=== PATIENT | female | born 1980 | race Caucasian/White ===

== ENCOUNTER 2019-05-11 11:29 | Inpatient (IN) ==
--- NOTE | 2019-04-23 15:12 | PAT Medication Instructions ---
Medication Instructions Date of Service April 23, 2019 Home Medications Juice Plus 1 cap PO DAILY 04/23/19 [History Confirmed 04/23/19] acidophilus-pectin, citrus [Acidophilus Probiotic] 1 cap PO DAILY 04/23/19 [History Confirmed 04/23/19] cholecalciferol (vitamin D3) [Vitamin D3] 2,000 unit PO DAILY 04/23/19 [History Confirmed 04/23/19] norethindrone (contraceptive) 0.35 mg PO DAILY 04/23/19 [History Confirmed 04/23/19] ASK your surgeon for instructions norethindrone (contraceptive) 0.35 mg PO DAILY 04/23/19 [History Confirmed 04/23/19] STOP taking 2 weeks before surgery (or as soon as possible if surgery is within 2 weeks) Juice Plus 1 cap PO DAILY 04/23/19 [History Confirmed 04/23/19] DO NOT take the morning of surgery acidophilus-pectin, citrus [Acidophilus Probiotic] 1 cap PO DAILY 04/23/19 [History Confirmed 04/23/19] cholecalciferol (vitamin D3) [Vitamin D3] 2,000 unit PO DAILY 04/23/19 [History Confirmed 04/23/19] Other Notes If you have any questions please call us at [phone] or [phone] or [phone] or [phone]
--- NOTE | 2019-04-24 15:33 | Anesthesiology Consultation ---
Date of Service April 24, 2019 Assessment & Plan (1) Encounter for pre-operative examination: - Check test AM DOS Chart Review Chart Review: Acceptable Risk for Surgery and Patient seen in Pre Admission Te sting Teaching & Discussion Pre-Anesthesia Teaching/Discussion Notes: Instructed NPO after midnight before surgery,except medications with 15 cc of water. Medication instructions provided according to the PAT guidelines. History Surgery Operation Date: 05/11/19 11:30 Proposed Procedures p Myomectomy - Jac Smith MD Height/Weight Height: 5 ft 9 in Weight: 85.6 kg Allergies Allergy/AdvReac Type Severity Reaction Status Date / Time No Known Drug Allergies Allergy Verified 04/23/19 09:14 lactase [From Dairy Aid] AdvReac Intermediate diarrhea, Verified 04/23/19 09:14 severe abdominal pain and fatigue Medications Home Medications Medication Instructions Recorded Confirmed Last Taken Juice Plus 1 cap PO DAILY 04/23/19 04/23/19 Unknown acidophilus-pectin, citrus 1 cap PO DAILY 04/23/19 04/23/19 Unknown [Acidophilus Probiotic] cholecalciferol (vitamin D3) 2,000 unit PO DAILY 04/23/19 04/23/19 Unknown [Vitamin D3] norethindrone (contraceptive) 0.35 mg PO DAILY 04/23/19 04/23/19 Unknown Past Medical History Medical History Fibroids Exercise / Class Metabolic Activity II 4-5 Yardwork/Stairs/Walk up hill Past Family History Family History Other No family history of adverse response to anesthesia Past Surgical History Surgical History History of dilatation and curettage D&C, hysteroscopy, polypectomy: 11/08/11: [place] [facility] [place] Past Anesthesia History No Hx of Anesthesia Complications and No Family Hx of Anesthesia Complications History of PONV No Hx of PONV and Hx of Motion Sickness (occasional) Social History Smoking Status: Never smoker Do You Dip or Chew Tobacco: No Hx Alcohol Use: Yes Alcohol type: wine alcohol intake frequency: holidays/special occasions only Hx Substance Use: No substance use type: does not use Review of Systems Patient denies chest pain, shortness of breath, dyspnea on exertion, reflux, cough, wheezing, palpitations. Physical Exam Vital Signs VITALS BP 105/68 P 54 TEMP 98.3 SP02 97%RA RESP 16 PHYSICAL Full neck and c-spine range of motion. Full TMJ range of motion. TMD 3.5 finger breaths Mallampati Score 1 Dentition: intact Lungs: clear throughout to auscultation Cardiac: regular rate and rhythm, no murmurs noted Spine: normal Extremities: no edema Testing Laboratory Results 04/24/19 15:44 04/24/19 15:44 PT 10.3 Seconds (9.0-12.0) 04/24/19 15:44 INR 1.0 (0.9-1.1) 04/24/19 15:44 APTT 27.9 Seconds (21.0-31.0) 04/24/19 15:44 Blood Type O Positive 04/24/19 15:44 Antibody Screen NEGATIVE 04/24/19 15:44
[2019-04-24 15:57] LABS: Basophils # (auto) 0.02 K/uL (0-0.2); Basophils % (auto) 0.5 %; Eosinophils # (auto) 0.06 K/uL (0-0.5); Eosinophils % (auto) 1.4 %; Hematocrit (blood only) 38.5 % (37-47); Hemoglobin 13.2 g/dL (12.0-16.0); Immature Granulocytes # (auto) 0.01 K/uL (0.00-0.02); Immature Granulocytes % (auto) 0.2 %; Lymphocytes # (auto) 1.72 K/uL (1.2-3.4); Lymphocytes % (auto) 40.1 %; Mean Corpuscular Hgb Conc 34.3 g/dL (32-36); Mean Corpuscular Volume 93.2 fL (80-100); Mean Platelet Volume 10.1 fL (7.4-10.4); Monocytes % (auto) 11.7 %; Neutrophils # (auto) 1.98 K/uL (1.4-6.5); Neutrophils % (auto) 46.1 %; Platelet Count 238 K/uL (130-400); RDW Coefficient of Variation 13.1 % (11.5-14.5); RDW Standard Deviation 44.3 fL (36.4-46.3); Red Blood Count 4.13 M/uL (4.2-5.4); White Blood Count 4.29 K/uL (4.8-10.8)
--- NOTE | 2019-04-24 16:11 | History and Physical Report ---
DATE OF ADMISSION: 05/11/2018 REASON FOR VISIT: Symptomatic uterine fibroids, episodes of heavy bleeding, desire to maintain fertility. HISTORY OF PRESENT ILLNESS: The patient is a 39-year-old [place]ip. General health is good. She has been on norethindrone 5 mg a day for about a year to stop heavy prolonged vaginal bleeding. She was diagnosed in October of 2017 with multiple uterine fibroids and consistent heavy bleeding associated with these fibroids. Bleeding was brought under control by placing her on norethindrone. Latest ultrasound revealed 4 distinct uterine fibroids, the largest one up to about 5 cm, presently being scheduled for multiple myomectomies with preservation of the uterus. PAST MEDICAL HISTORY: She has no known drug allergies. PAST SURGICAL HISTORY: She had a right ACL repair. MEDICAL HISTORY: She is on no antibiotics. SOCIAL HISTORY: No smoking, no alcohol intake. Works as a teacher. FAMILY HISTORY: Dad 75, has high blood pressure. Mother 75 in good health. She has no brothers or sisters. REVIEW OF SYSTEMS: HEAD: No symptoms of frequent or severe headaches. EYES: No symptoms of blurred vision, double vision. EARS: No symptoms of frequent ear infections. PHYSICAL EXAMINATION: GENERAL: Well-developed, well-nourished 39-year-old white female, alert, oriented x3 and cooperative, in no acute distress, appeared her stated age. EYES: Conjunctivae are pink. Sclerae white, no evidence of jaundice. EARS: Had normal light reflex bilaterally. NOSE: Had normal mucosa. Septum is midline. There were no polyps. THROAT: No erythema or evidence of infection. Teeth are in good state of repair. HEAD: Normocephalic, normal distribution of hair. NECK: Supple. Trachea midline. Thyroid is not enlarged. There is no adenopathy appreciated. Both carotids are of good intensity. CHEST: Clear to auscultation and percussion. No wheezes, rales or rhonchi appreciated. HEART: Had regular rhythm. S1, S2 are normal. BREASTS: Normal. ABDOMEN: Soft and nontender. PELVIC: Revealed a normal-appearing cervix. Uterus was about 12 weeks' gestational size, irregular and firm. No adnexal masses appreciated. MUSCULOSKELETAL: Revealed no calf tenderness. IMPRESSIONS OF THIS CASE: Multiple symptomatic uterine fibroids and history of prolonged bleeding secondary to fibroids.
[2019-04-24 16:12] LABS: Partial Thromboplastin Time 27.9 Seconds (21.0-31.0); Prothrombin Time 10.3 Seconds (9.0-12.0)
[2019-04-24 16:23] LABS: BUN Creatinine Ratio 20.1 (10-20); Calcium 9.1 mg/dl (8.5-10.1); Creatinine Clr Calc Pharmacy 104.8 ml/min; Est GFR (African American) 100.7; Est GFR (Non-African American) 86.9
[~2019-05-11 11:29] MED LIST: LR 15ML/HR IV SCH; cefOXitin 2,000 MG in DEXTROSE 5% 50 ML IV SCH
--- NOTE | 2019-05-11 12:17 | History & Physical Bridge Note ---
Date of Service May 11, 2019 History & Physical Bridge Note I have examined the patient, reviewed the History & Physical and in the interval since the performance of the History & Physical I have noted the following changes of clinical significance: no changes noted
[2019-05-11] MEDS ORDERED: ONDANSETRON INJ 2 MG/ML 2 ML VIAL ONE ×2 (14:02→15:11)
[2019-05-11] MEDS ORDERED: DEXAMETHASONE SOD INJ 4 MG/ML VIAL ONE ×2 (14:02→15:11)
[2019-05-11] MEDS ORDERED: PROPOFOL IV EMULSION 10 MG/ML 20 ML VIAL IV ONE (14:02)
[2019-05-11] MEDS ORDERED: MIDAZOLAM HCL 1 MG/ML 2ML VIAL ONE ×2 (14:02→14:39)
[2019-05-11] MEDS ORDERED: LIDOCAINE HCL 2% 2 ML VIAL/AMP(20MG/ML) INFIL ONE (14:02)
[2019-05-11] MEDS ORDERED: fentaNYL citrate 100 MCG/2 ML VIAL ONE ×2 (14:06→15:18)
[2019-05-11] MEDS ORDERED: ALBUT/IPRATROP 3MG/0.5MG NEB 3 ML VIAL NEB STA (14:11)
[2019-05-11] MEDS ORDERED: HEPARIN SOD (PORCINE) 5,000 UNITS/ML VIAL ONE (14:16)
[2019-05-11] MEDS ORDERED: LIDOCAINE/EPINEPHRINE 1% 20 ML VIAL ONE ×2 (14:16→15:22)
[2019-05-11] MEDS ORDERED: MoRPHine SULFATE PF 1 MG/ML 10 ML AMP/VIAL ONE (14:17)
[2019-05-11] MEDS ORDERED: GLYCOPYRROLATE 0.2 MG/ML VIAL ONE (15:19)
[2019-05-11] MEDS ORDERED: SEPRAFILM ADHESION BARR (4) 3X2.5IN TOP ONE ×2 (16:13→16:31)
--- NOTE | 2019-05-11 16:56 | Post Operative Brief Note ---
Immediate Post Op Note v1 Date of Surgery May 11, 2019 Pre & Post Diagnosis Operation Date: 05/11/19 12:40 Pre-Op Diagnosis: Multiple Fibroids, Heavy Vaginal Bleeding Post-Op Diagnosis: Multiple Fibroids, Heavy Vaginal Bleeding I identified the patient and participated in the time-out.: Yes Procedure Operation Date: 05/11/19 12:40 Actual Procedures p Myomectomy(Not Applicable) - Jac Smith MD Surgeon Jac Smith MD International [employer] Coordinator Estimated Blood Loss 20 Findings Consistent with Post-Op Diagnosis Specimens 8 Uterine Fibroids Drains Mendes Catheter Anesthesia Type General/Epidural Complications none none Disposition Accompanied Patient To Recovery: Yes Disposition: Recovery Room
--- NOTE | 2019-05-11 17:40 | Anesthesiology Progress Note ---
Date of Service May 11, 2019 Anesthesia Post Procedure Vital Signs Vital Signs: Temp Pulse Pulse Resp BP BP Pulse Ox 05/11/19 17:35 37.4 C 61 14 114/65 93 05/11/19 17:25 73 18 119/72 95 05/11/19 17:15 70 15 126/67 98 05/11/19 17:06 36.5 C 71 19 111/68 98 05/11/19 14:20 62 16 97 05/11/19 11:57 36.7 C 66 18 136/63 96 Transfer of Care Handoff Completed per policy Notes Mental Status: alert / awake / arousable and participated in evaluation Patient Amnestic to Procedure: Yes Nausea / Vomiting: adequately controlled Pain: adequately controlled Airway Patency, RR, SpO2: stable & adequate BP & HR: stable & adequate Hydration State: stable & adequate Anesthetic Complications: no major complications apparent and Pt Satisfied with anesthetic care
[2019-05-11] MEDS ORDERED: DiphenhydrAMINE HCL 50 MG/ML VIAL IV PRN (18:02)
[2019-05-11] MEDS ORDERED: ePHEDrine sulfate 50 MG/ML AMP IV PRN (18:02)
[2019-05-11] MEDS ORDERED: LACTATED RINGER'S 500 ML IV PRN (18:02)
[2019-05-11] MEDS ORDERED: NALBUPHINE HCL INJ 10 MG/ML AMP IV PRN (18:02)
[2019-05-11] MEDS ORDERED: NALOXONE HCL 0.4 MG/1 ML VIAL/CARP IV PRN (18:02)
[2019-05-11] MEDS ORDERED: NALOXONE HCL 1 MG in SODIUM CHLORIDE 0.9% 1000ML 1,000 ML IV PRN (18:02)
[2019-05-11] MEDS ORDERED: NALOXONE HCL 0.08 MG in SYRINGE 1.8 ML IV PRN (18:02)
[2019-05-11] MEDS ORDERED: MoRPHine SULFATE PF 1 MG/ML 10 ML AMP/VIAL INT SPINAL ONE (18:02)
[2019-05-11] MEDS ORDERED: ONDANSETRON INJ 2 MG/ML 2 ML VIAL IV PRN (18:06)
[2019-05-11] MEDS ORDERED: IBUPROFEN 600 MG TAB PO PRN (18:06)
[2019-05-11] MEDS ORDERED: NO NARCOTICS OR SEDATIVES SCH (18:15)
[2019-05-11] MEDS ORDERED: SODIUM CHLORIDE 0.9% 1000ML 1,000 ML IV SCH (18:15)
[2019-05-11] MEDS ORDERED: INFLUENZA ADMINISTRATION CHARGE ONE (18:40)
[2019-05-11] MEDS ORDERED: INFLUENZA VIRUS QUAD VACCINE 0.5 ML SYR IM ONE (18:40)
--- NOTE | 2019-05-11 18:43 | Operative Report ---
DATE OF OPERATION: 05/11/2019 DATE OF : 1980 PROCEDURE: Myomectomy. INDICATIONS FOR SURGERY: History of persistent heavy bleeding, symptomatic uterine fibroids. PREOPERATIVE DIAGNOSIS: Symptomatic uterine fibroids. POSTOPERATIVE DIAGNOSES: Symptomatic uterine fibroids, removed 8 fibroids, the largest one being over 5 cm. SURGEON: Alisha Smith MD. GAS FLOW REGULATOR: Dr. Gamez. ESTIMATED BLOOD LOSS: About 50 mL. ANESTHESIA: General with intraspinal narcotics. OPERATIVE FINDINGS AND PROCEDURE: The patient was brought to the OR table, correctly identified by armband and conversation. Intraspinal narcotics were administered, then general anesthesia was administered. Lower abdomen was painted with an alcohol based sterilizing solution, draped in the usual sterile fashion. Pfannenstiel incision was made and carried down to the anterior fascia by sharp dissection. Hemostasis was secured by electrocauterization. Fascia was incised transversely the underlying muscle by blunt and sharp dissection. Recti muscles were in the midline . The peritoneum which was carefully raised and entered. An O'Vega-O'Cunha self-retraining retractor was placed in the incision and several moist laparotomy packs were used to pack off the bowels, 3 packs to be exact. A large fibroid uterus with multiple fibroids, some pedunculated but a large dominant posterior fundal fibroid was palpable. We used electrocautery to cut down to the fibroid, grabbed it with Allis after injecting the fibroid with local with epinephrine and shelled it out. We then partially closed the defect. We did it in about 3 layers, did the deep layer first and we went on to remove 7 other fibroids, some pedunculated, some of them anterior. We had to make at least 3 separate incisions to get all fibroids out and all the deep myometrial defects were approximated with [id number] suture of heavy Vicryl in several layers and at the end of the procedure while hemostasis was excellent, was noted to be some endometriosis at the time of the surgery. The left ovary was attached to the posterior aspect of the uterus was freed. We washed the pelvis of all blood clots and debris. Hemostasis was excellent. We used Seprafilm over the incision, then removed the retractor and did a careful anatomical approximation. Peritoneum was closed with a mattress suture of chromic catgut. Recti muscles approximated with interrupted [id number] suture of chromic catgut. Fascia was closed with continuous interlocking suture of Vicryl on each side, tied in the midline. SubQ was approximated with a running plain and skin edges were approximated with staple clips. The patient tolerated the procedure well and left the OR in good condition. I attest to the content of the Intraoperative Record and any orders documented therein. Any exceptions are noted below. ELISSA
[2019-05-11] MEDS: D5W AND LACTATED RINGERS 1,000 ML IV SCH (20:15)
[2019-05-12] MEDS: D5W AND LACTATED RINGERS 1,000 ML IV SCH ×2 (04:07→11:08)
--- NOTE | 2019-05-12 11:51 | Obstetrical Progress Note ---
Date of Service May 12, 2019 Physical Exam Physical Exam: abdomen soft and non tender bowel sounds hypoactive bandage removed incision is clean and dry no calf tenderness tolerating liquid diet Results & Data Vital Signs (Past 12 Hours) Vital Signs Temp Pulse Resp BP Pulse Ox Pulse Ox 05/12/19 11:06 16 95 05/12/19 10:35 18 96 05/12/19 09:22 16 95 05/12/19 08:48 16 96 05/12/19 07:56 96 05/12/19 07:01 36.9 C 60 16 104/60 96 05/12/19 03:15 37 C 71 16 108/58 L 94
[2019-05-12] MEDS ORDERED: DC INTRASPINAL MORPHINE ONE (12:03)
[2019-05-12] MEDS ORDERED: MEPERIDINE HCL 50 MG/ML CARP IV PRN (12:05)
[2019-05-12] MEDS ORDERED: OXYCODONE/ACETAMINOPHEN 5mg/325mg TAB PO PRN (12:05)
--- NOTE | 2019-05-12 14:32 | Anesthesiology Progress Note ---
Date of Service May 12, 2019 Anesthesia Post Procedure Vital Signs Vital Signs: Temp Pulse Pulse Resp BP Pulse Ox Pulse Ox 05/12/19 11:51 17 96 05/12/19 11:06 16 95 05/12/19 10:35 18 96 05/12/19 09:22 16 95 05/12/19 08:48 16 96 05/12/19 07:56 96 05/12/19 07:01 36.9 C 60 16 104/60 96 05/12/19 03:15 37 C 71 16 108/58 L 94 05/11/19 23:25 36.8 C 71 16 105/62 95 05/11/19 23:05 14 94 05/11/19 22:15 16 93 05/11/19 21:10 16 94 05/11/19 21:00 36.7 C 67 16 126/71 95 05/11/19 20:00 14 97 05/11/19 19:56 36.8 C 72 16 111/65 95 05/11/19 19:10 18 96 05/11/19 19:00 36.7 C 67 16 113/68 94 05/11/19 18:30 37.2 C 86 16 113/74 93 05/11/19 18:00 36.8 C 60 16 120/68 99 05/11/19 17:45 62 14 115/68 94 05/11/19 17:35 37.4 C 61 14 114/65 93 05/11/19 17:25 73 18 119/72 95 05/11/19 17:15 70 15 126/67 98 05/11/19 17:06 36.5 C 71 19 111/68 98 Pain Intensity Bilateral Abdomen: Pain Intensity: 3 Notes Mental Status: alert / awake / arousable and participated in evaluation Patient Amnestic to Procedure: Yes Nausea / Vomiting: adequately controlled Pain: adequately controlled Airway Patency, RR, SpO2: stable & adequate BP & HR: stable & adequate Hydration State: stable & adequate Anesthetic Complications: no major complications apparent
[2019-05-12] MEDS: KETOROLAC 30 MG/ML VIAL IV PRN (16:28)
[2019-05-13] MEDS: KETOROLAC 30 MG/ML VIAL IV PRN (03:05)
[2019-05-13 07:56] VITALS: BP 121/66; PULSE 78; TEMP 97.9; O2SAT 95
--- NOTE | 2019-05-13 12:07 | Obstetrical Progress Note ---
Date of Service May 13, 2019 Physical Exam Physical Exam: abdomen soft and non tender passing flatus incision is clean and dry no calf tenderness ambulating well post operative hgb 11.5 Results & Data Vital Signs (Past 12 Hours) Vital Signs Temp Pulse Resp BP Pulse Ox 05/13/19 07:55 36.6 C 78 17 121/66 95
--- NOTE | 2019-05-13 15:41 | Discharge Summary ---
Mrs. Andujar was admitted. She had a long-term history of prolonged heavy vaginal bleeding actually resulting in anemia. She was found to have multiple uterine fibroids. Her preoperative diagnosis showed a large posterior 5 cm fibroid and 3 other ones in the range of about 2.5 cm. On the day of admission, she was taken to the OR. She was given prophylactic antibiotics and through a Pfannenstiel incision, we performed multiple myomectomies. The surgery would deem to be moderately difficult. Uterus was quite large until we started to remove the fibroids. The first fibroid removed was 5 cm and ended up removing 8 fibroids in total. Following this, hemostasis was good. Preoperative hemoglobin was 13.2. Postoperatively, hemoglobin fell to 11.5. It took about 24 hours for her bowel sounds to return. At the time of discharge, she was ambulating well, eating well. Pain was controlled with a combination of Percocet and Motrin and she was given the usual postoperative instructions to call if she had a temperature over 100 or heavy bleeding, and return to the office for removal of orestes.
== END 2019-05-13 14:53 | disposition home or self-care (01) | DRG 743 ==
LOC: ASU 11:29 → 3N 17:09